=== PATIENT | male | born 1965 | race African-American/Black ===

== ENCOUNTER 2016-12-03 12:33 | Inpatient (IN) | payer OTHER ==
[2016-12-03 14:14] VITALS: BMI 29.7
--- NOTE | 2016-12-03 16:11 | HP ---
CIWA Score - CIWA Score Nausea/Vomitin Muscle Tremors: 3 Anxiety: 1-Mildly Anxious Agitation: 1-Slight > Activity Paroxysmal Sweats: 2 Orientation: 4Disoriented Place/Person Tacttile Disturbances: 0-None Auditory Disturbances: 0-None Visual Disturbances: 0-None Headache: 3-Moderate CIWA-Ar Total Score: 19 Admission ROS BHS - HPI Chief Complaint: "I need to get help." Pt. is here to Detox from Alcohol. Allergies/Adverse Reactions: Allergies Allergy/AdvReac Type Severity Reaction Status Date / Time No Known Allergies Allergy Verified 12/03/16 15:45 History of Present Illness: Pt. is a 51 YO male here to Detox from Alcohol. This is pt.'s first Detox admission at [facility]. Pt. has had a previous Detox admission at [facility] (). Exam Limitations: No Limitations - Ebola screening Have you traveled outside of the country in the last 21 days: No Have you had contact with anyone from an Ebola affected area: No Have you been sick,other than usual withdrawal symptoms: No Do you have a fever: No - Review of Systems Constitutional: Chills, Diaphoresis, Malaise, Night Sweats, Changes in sleep EENT: reports: Blurred Vision, Nose Congestion, Sinus Pressure Respiratory: reports: Cough Cardiac: reports: Palpitations GI: reports: Nausea, Vomiting : reports: No Symptoms Reported Musculoskeletal: reports: No Symptoms Reported Integumentary: reports: No Symptoms Reported Neuro: reports: Headache, Tremors Endocrine: reports: No Symptoms Reported Hematology: reports: No Symptoms Reported Psychiatric: reports: Judgement Intact, Mood/Affect Appropiate, Disorientated ( To Current location.) Other Systems: Reviewed and Negative Patient History - Patient Medical History Hx Anemia: No Hx Asthma: No Hx Chronic Obstructive Pulmonary Disease (COPD): No Hx Cancer: No Hx Cardiac Disorders: No Hx Congestive Heart Failure: No Hx Hypertension: No Hx Hypercholesterolemia: No Hx Pacemaker: No HX Cerebrovascular Accident: No Hx Seizures: No Hx Dementia: No Hx Diabetes: No Hx Gastrointestinal Disorders: No Hx Liver Disease: No Hx Genitourinary Disorders: No Hx Sexually Transmitted Disorders: No Hx Renal Disease (ESRD): No Hx Thyroid Disease: No Hx Human Immunodeficiency Virus (HIV): No (Last Tested: 2015: NEGATIVE.) Hx Hepatitis C: No (Last Tested: 09/2016: NEGATIVE.) Hx Depression: No Hx Suicide Attempt: No (PATIENT DENIES CURRENT SI / HI.) Hx Bipolar Disorder: No Hx Schizophrenia: Yes (Takes Meds.) Other Medical History: DENIES. - Patient Surgical History Past Surgical History: No Hx Neurologic Surgery: No Hx Cataract Extraction: No Hx Cardiac Surgery: No Hx Lung Surgery: No Hx Breast Surgery: No Hx Breast Biopsy: No Hx Abdominal Surgery: No Hx Appendectomy: No Hx Cholecystectomy: No Hx Genitourinary Surgery: No Hx Section: No Hx Orthopedic Surgery: No Anesthesia Reaction: No - PPD History Previous Implant?: Yes Documented Results: Negative w/o proof Implanted On Prior [facility] Admission?: No PPD to be Administered?: Yes - Reproductive History Patient is a Female of Child Bearing Age (11 -55 yrs old): No (PATIENT IS MALE.) - Smoking Cessation Smoking history: Current every day smoker Have you smoked in the past 12 months: Yes Aproximately how many cigarettes per day: 20 Cigars Per Day: 0 Hx Chewing Tobacco Use: No Initiated information on smoking cessation: Yes 'Breaking Loose' booklet given: 12/03/16 (GIVEN ON UNIT.) - Substance & Tx. History Hx Alcohol Use: Yes Hx Substance Use: Yes Substance Use Type: Alcohol, Cocaine Hx Substance Use Treatment: Yes (1 Previous Detox admission at [facility] ( 2017).) - Substances Abused Crack Route: Smoking Frequency: 1-2 times per week Amount used: $40 Age of first use: 39 Date of Last Use: 12/02/16 Alcohol-beer Route: Smoking Frequency: Daily Amount used: 1-6 pk. Age of first use: 39 Date of Last Use: 12/03/16 Family Disease History - Family Disease History Family History: Denies Admission Physical Exam S - Vital Signs Vital Signs: Vital Signs - 24 hr 12/03/16 14:13 Temperature 96.4 F L Pulse Rate 62 Respiratory 20 Rate Blood Pressure 144/90 - Physical General Appearance: Yes: No Apparent Distress, Nourished, Appropriately Dressed , Tremorous HEENTM: Yes: Hearing grossly Normal, Normocephalic, Normal Voice, JOHNNIE, Pharynx Normal Respiratory: Yes: Chest Non-Tender, Lungs Clear, No Respiratory Distress, No Accessory Muscle Use Neck: Yes: No masses,lesions,Nodules, Supple, Trachea in good position Breast: Yes: Breast Exam Deferred Cardiology: Yes: Regular Rhythm, Regular Rate, S1, S2 Abdominal: Yes: Normal Bowel Sounds, Non Tender, Flat, Soft Genitourinary: Yes: Within Normal Limits Back: Yes: Normal Inspection Musculoskeletal: Yes: full range of Motion, Gait Steady Extremities: Yes: Normal Range of Motion, Non-Tender, Tremors Neurological: Yes: Alert, Normal Mood/Affect, Normal Response, Disoriented (To Current Location.) Integumentary: Yes: Normal Color, Dry, Warm Lymphatic: Yes: Within Normal Limits - Diagnostic (1) Alcohol dependence with uncomplicated withdrawal Current Visit: Yes Status: Acute (2) Cocaine dependence, uncomplicated Current Visit: Yes Status: Acute (3) History of schizophrenia Current Visit: Yes Status: Chronic (4) Nicotine dependence Current Visit: Yes Status: Chronic Qualifiers: Nicotine product type: cigarettes Substance use status: uncomplicated Qualified Code(s): F17.210 - Nicotine dependence, cigarettes, uncomplicated Cleared for Admission [facility] - Detox or Rehab [facility] Level of Care: Medically Managed Detox Regimen/Protocol: Librium [facility] Breath Alcohol Content Breath Alcohol Content: 0 Urine Drug Screen - Results Drug Screen Negative: No Urine Drug Screen Results: CIRO-Cocaine
[2016-12-03] MEDS ORDERED: chlordiazePOXIDE HCL 25 MG CAPSULE PO ONE (16:35)
[2016-12-03] MEDS ORDERED: MAGNESIUM CITRATE 300 ML BOTTLE PO PRN (16:35)
[2016-12-03] MEDS ORDERED: guaiFENesin/D-METHORPHAN HB 10 ML UNIT-DOSE CUPS PO PRN (16:35)
[2016-12-03] MEDS ORDERED: IBUPROFEN 400 MG TABLET (FP) PO PRN (16:35)
[2016-12-03] MEDS ORDERED: MENTHOL/PHENOL 1 EACH UD MM PRN (16:35)
[2016-12-03] MEDS ORDERED: LOPERAMIDE HCL 2 MG CAPSULE PO PRN (16:35)
[2016-12-03] MEDS ORDERED: diphenhydrAMINE HCL 50 MG CAPSULE PO PRN ×2 (16:35→18:50)
[2016-12-03] MEDS ORDERED: MAGNESIUM HYDROX 2400MG/30ML ORAL SUSPENSION 30 ML CUP PO PRN (16:35)
[2016-12-03] MEDS ORDERED: ACETAMINOPHEN 325 MG TABLET (FP) PO PRN (16:35)
[2016-12-03] MEDS ORDERED: chlordiazePOXIDE HCL 25 MG CAPSULE PO PRN (16:35)
[2016-12-03] MEDS ORDERED: NICOTINE POLACRILEX 2 MG GUM BC PRN (16:35)
[2016-12-03] MEDS ORDERED: P-EPHED 60MG/TRIPROLIDI 2.5MG TABLET PO PRN (16:35)
[2016-12-03] MEDS ORDERED: MAG HYDROX/AL HYDROX/SIMETH 30 ML UNIT-DOSE CUP PO PRN (16:35)
[2016-12-03] MEDS ORDERED: hydrOXYzine PAMOATE 50 MG CAPSULE (FP) PO PRN ×2 (16:35→18:50)
[2016-12-03] MEDS: NICOTINE 21 MG/24 HOURS TOPICAL PATCH TD SCH (18:33)
[2016-12-03] MEDS: chlordiazePOXIDE HCL 25 MG CAPSULE PO SCH ×2 (18:34→22:37)
[2016-12-03] MEDS: THIAMINE HCL 100 MG TABLET (FP) PO SCH (22:37)
[2016-12-03 23:37] LABS: URINE APPEARANCE CLEAR; URINE BILIRUBIN NEGATIVE (NEGATIVE); URINE BLOOD 1+ (NEGATIVE); URINE COLOR LTYELLOW; URINE GLUCOSE (UA) NEGATIVE (NEGATIVE); URINE KETONE NEGATIVE (NEGATIVE); URINE LEUK ESTERASE NEGATIVE (NEGATIVE); URINE NITRITE NEGATIVE (NEGATIVE); URINE UROBILINOGEN NEGATIVE mg/dL (0.2-1.0)
[2016-12-03 23:46] LABS: URINE PROTEIN 1+ (NEGATIVE)
[2016-12-03 23:56] LABS: URINE MUCUS RARE; URINE RBC 3 /hpf (0-3); URINE WBC 1 /hpf (3-5)
[2016-12-04] MEDS: chlordiazePOXIDE HCL 25 MG CAPSULE PO SCH ×4 (05:26→22:54)
[2016-12-04 10:09] LABS: MCH 28.4 pg (25.7-33.7); MCHC 33.1 g/dl (32.0-35.9); MEAN CELL VOLUME 85.9 fl (80-96); MEAN PLT VOLUME 8.1 fl (7.5-11.1); PLATELET COUNT 245 K/MM3 (134-434); RDW 14.2 % (11.9-15.9); WHITE BLOOD COUNT 6.1 K/mm3 (4.0-10.0)
[2016-12-04 10:23] LABS: SICKLE CELL SCREEN POSITIVE (NEGATIVE)
[2016-12-04 10:37] LABS: ALBUMIN 3.7 g/dl (3.4-5.0); ALK PHOS 73 U/L (45-117); ANION GAP 8 (8-16); BILIRUBIN,TOTAL 0.6 mg/dL (0.2-1.0); CALCIUM 8.8 mg/dL (8.5-10.1); CO2 27 mmol/L (21-32); CREATININE 1.1 mg/dL (0.7-1.3); GLUCOSE,RANDOM 85 mg/dL (74-106); SGOT/AST 19 U/L (15-37); SGPT/ALT 21 U/L (12-78); TOT PROT 7.1 g/dl (6.4-8.2)
[2016-12-04] MEDS: NICOTINE 21 MG/24 HOURS TOPICAL PATCH TD SCH (11:33)
[2016-12-04] MEDS: PRENATAL VITAMINS W/ FOLIC ACID TABLET (FP) PO SCH (11:33)
[2016-12-04] MEDS ORDERED: FLU VACCINE QUAD 60 MCG/0.5 ML (MDV 17-18) IM ONE (12:00)
[2016-12-04 12:17] LABS: HIV 1 & 2 AB NEGATIVE; HIV 1 AGp24 NEGATIVE
--- NOTE | 2016-12-04 13:07 | EKG ---
Test Reason : Blood Pressure : / mmHG Vent. Rate : 057 BPM Atrial Rate : 057 BPM P-R Int : 160 ms QRS Dur : 094 ms QT Int : 414 ms P-R-T Axes : 059 056 047 degrees QTc Int : 402 ms SINUS BRADYCARDIA OTHERWISE NORMAL ECG NO PREVIOUS ECGS AVAILABLE Confirmed by CALE ALBA MD ([id number]) on 12/04/2016 1:06:49 PM Referred By: Felix Miller Confirmed By:CALE ALBA MD
--- NOTE | 2016-12-04 13:59 | CONSULT ---
[facility] Psychiatric Consult - Data Date of interview: 12/04/16 Admission source: [facility] Identifying data: First admission to [facility] for this 51 y/o AA male seeking detox treatment on for alcohol and cocaine dependence.Patient is single without children,domiciled,unemployed and currently supported on Public Assistance (SSI pending). Substance Abuse History: Confirmed by patient in this session. Smoking Cessation. Smoking history: Current every day smoker. Have you smoked in the past 12 months: Yes. Aproximately how many cigarettes per day: 20. Cigars Per Day: 0. Hx Chewing Tobacco Use: No. Initiated information on smoking cessation : Yes. 'Breaking Loose' booklet given: 12/03/16 (GIVEN ON UNIT.). - Substance & Tx. History. Hx Alcohol Use: Yes. Hx Substance Use: Yes. Substance Use Type : Alcohol, Cocaine. Hx Substance Use Treatment: Yes (1 Previous Detox admission at [facility] (2017).). - Substances Abused. Crack. Route: Smoking. Frequency: 1-2 times per week. Amount used: $40. Age of first use: 39. Date of Last Use: 12/02/16. Alcohol-beer. Route: Smoking. Frequency: Daily. Amount used: 1-6 pk. Age of first use: 39. Date of Last Use: 12/03/16 Medical History: Patient endorses good general health. Psychiatric History: Previous history of psychiatric hospitalizations ([facility] and [facility]Diagnosed with Paranoid Schizophrenia.Maintained on haldol and cogentin (doses not recalled).Last taken prior to this [facility] visit (as per self-report).Mr Washington indicates that he gets his psychiatric OPD services at the [facility] mental health clinic.Denies history of suicide attempts. Physical/Sexual Abuse/Trauma History: No reported history of abuse. Additional Comment: Urine Drug Screen Results: CIRO-Cocaine.Noted. Mental Status Exam - Mental Status Exam Alert and Oriented to: Time, Place, Person Cognitive Function: Good Patient Appearance: Well Groomed Mood: Hopeful, Euthymic Affect: Normal Range Patient Behavior: Appropriate, Cooperative Speech Pattern: Clear Voice Loudness: Normal Thought Process: Intact, Goal Oriented Thought Disorder: Not Present Hallucinations: Denies Suicidal Ideation: Denies Homicidal Ideation: Denies Insight/Judgement: Poor Sleep: Poorly, Difficulty falling asleep (wants ambien) Appetite: Good Muscle strength/Tone: Normal Gait/Station: Normal Psychiatric Findings - Problem List ([place] 1, 2,3) (1) Paranoid schizophrenia Current Visit: Yes Status: Chronic (2) Alcohol dependence with uncomplicated withdrawal Current Visit: Yes Status: Acute (3) Cocaine dependence, uncomplicated Current Visit: Yes Status: Acute (4) Nicotine dependence Current Visit: Yes Status: Acute Qualifiers: Nicotine product type: cigarettes Substance use status: uncomplicated Qualified Code(s): F17.210 - Nicotine dependence, cigarettes, uncomplicated - Initial Treatment Plan Initial Treatment Plan: Psychoeducation.Detoxification in progress.Medications : haldol 5 mg po hs + cogentin 1 mg po hs.Side effects/benefits didscussed with patient.Made aware of risk of abnormal involuntary movements,akathisia,dystonias ,dyskinesias,neuroleptic malignant syndrome and anticholinergic manifestations ( dry mouth,blurred vision,urinary hesitancy,constipation).He agrees with this careplan.Observation.
[2016-12-04] MEDS ORDERED: HALOPERIDOL 5 MG TABLET (FP) PO PRN (14:19)
--- NOTE | 2016-12-04 16:45 | PN ---
[facility] CIWA - CIWA Score Nausea/Vomitin-No Nausea/No Vomiting Muscle Tremors: 4-Moderate,w/Arms Extend Anxiety: 3 Agitation: 1-Slight > Activity Paroxysmal Sweats: 3 Orientation: 0-Oriented Tacttile Disturbances: 3-Moderate Itch/Numb/Burn Auditory Disturbances: 0-None Visual Disturbances: 3-Moderate Sensitivity Headache: 0-None Present CIWA-Ar Total Score: 17 S Progress Note (SOAP) Subjective: Tremors, Sweating, Fatigue. Objective: PT. A & O X 3. NO ACUTE DISTRESS. 12/04/16 16:42 Vital Signs Temperature 97.1 F L 12/04/16 15:23 Pulse Rate 71 12/04/16 15:23 Respiratory Rate 18 12/04/16 15:23 Blood Pressure 107/81 12/04/16 15:23 O2 Sat by Pulse Oximetry (%) Laboratory Tests 12/03/16 12/04/16 12/04/16 23:20 08:00 08:00 WBC 6.1 RBC 4.67 Hgb 13.3 Hct 40.1 MCV 85.9 MCH 28.4 MCHC 33.1 RDW 14.2 Plt Count 245 MPV 8.1 Sickle Cell Screen Positive Sodium Potassium Chloride Carbon Dioxide Anion Gap BUN Creatinine Creat Clearance w eGFR Random Glucose Calcium Total Bilirubin AST ALT Alkaline Phosphatase Total Protein Albumin Urine Color Ltyellow Urine Appearance Clear Urine pH 6.0 Ur Specific [place] 1.015 Urine Protein 1+ H Urine Glucose (UA) Negative Urine Ketones Negative Urine Blood 1+ H Urine Nitrite Negative Urine Bilirubin Negative Urine Urobilinogen Negative Urine RBC 3 Urine WBC 1 Urine Mucus Rare RPR Titer HIV 1&2 Antibody Screen Negative HIV P24 Antigen Negative 12/04/16 12/04/16 08:00 08:00 WBC RBC Hgb Hct MCV MCH MCHC RDW Plt Count MPV Sickle Cell Screen Sodium 140 Potassium 3.7 Chloride 105 Carbon Dioxide 27 Anion Gap 8 BUN 9 Creatinine 1.1 Creat Clearance w eGFR > 60 Random Glucose 85 Calcium 8.8 Total Bilirubin 0.6 AST 19 ALT 21 Alkaline Phosphatase 73 Total Protein 7.1 Albumin 3.7 Urine Color Urine Appearance Urine pH Ur Specific [place] Urine Protein Urine Glucose (UA) Urine Ketones Urine Blood Urine Nitrite Urine Bilirubin Urine Urobilinogen Urine RBC Urine WBC Urine Mucus RPR Titer Nonreactive HIV 1&2 Antibody Screen HIV P24 Antigen LABS NOTED. HCV AB RESULT PENDING. 12/04/16 16:44 Assessment: 12/04/16 16:42 WITHDRAWAL SYMPTOMS. Plan: CONTINUE DETOX. REPEAT UA FOR ADMISSION ABNORMALITIES. INCREASE DAILY PO FLUID INTAKE.
[2016-12-04] MEDS: HALOPERIDOL 5 MG TABLET (FP) PO SCH (22:53)
[2016-12-04] MEDS: THIAMINE HCL 100 MG TABLET (FP) PO SCH (22:53)
[2016-12-04] MEDS: BENZTROPINE MESYLATE 1 MG TABLET (FP) PO SCH (22:54)
[2016-12-05] MEDS: chlordiazePOXIDE HCL 25 MG CAPSULE PO SCH ×2 (05:55→10:39)
[2016-12-05 10:13] LABS: URINE APPEARANCE CLEAR; URINE BILIRUBIN NEGATIVE (NEGATIVE); URINE BLOOD 1+ (NEGATIVE); URINE COLOR LTYELLOW; URINE GLUCOSE (UA) NEGATIVE (NEGATIVE); URINE KETONE NEGATIVE (NEGATIVE); URINE LEUK ESTERASE NEGATIVE (NEGATIVE); URINE NITRITE NEGATIVE (NEGATIVE); URINE UROBILINOGEN NEGATIVE mg/dL (0.2-1.0)
[2016-12-05 10:19] LABS: URINE PROTEIN 1+ (NEGATIVE)
[2016-12-05] MEDS: PRENATAL VITAMINS W/ FOLIC ACID TABLET (FP) PO SCH (10:38)
[2016-12-05] MEDS: BENZTROPINE MESYLATE 1 MG TABLET (FP) PO SCH ×2 (10:39→22:32)
[2016-12-05] MEDS: NICOTINE 21 MG/24 HOURS TOPICAL PATCH TD SCH (10:39)
[2016-12-05] MEDS: HALOPERIDOL 5 MG TABLET (FP) PO SCH ×2 (10:39→22:33)
--- NOTE | 2016-12-05 16:43 | PN ---
S CIWA - CIWA Score Nausea/Vomitin Muscle Tremors: 3 Anxiety: 4-Mod. Anxious/Guarded Agitation: 4-Moderately Restless Paroxysmal Sweats: 3 Orientation: 0-Oriented Tacttile Disturbances: 0-None Auditory Disturbances: 0-None Visual Disturbances: 0-None Headache: 1-Very Mild CIWA-Ar Total Score: 18 BHS Progress Note (SOAP) Subjective: Anxious, sweating, tremor, chills, interrupted sleep Objective: 12/05/16 16:37 Last Vital Signs Temp Pulse Resp BP Pulse Ox 97.1 F L 77 18 108/87 12/05/16 14:58 12/05/16 14:58 12/05/16 14:58 12/05/16 14:58 Laboratory Tests 12/03/16 12/04/16 12/04/16 23:20 08:00 08:00 WBC RBC Hgb Hct MCV MCH MCHC RDW Plt Count MPV Sickle Cell Screen Sodium Potassium Chloride Carbon Dioxide Anion Gap BUN Creatinine Creat Clearance w eGFR Random Glucose Calcium Total Bilirubin AST ALT Alkaline Phosphatase Total Protein Albumin Urine Color Ltyellow Urine Appearance Clear Urine pH 6.0 Ur Specific [place] 1.015 Urine Protein 1+ H Urine Glucose (UA) Negative Urine Ketones Negative Urine Blood 1+ H Urine Nitrite Negative Urine Bilirubin Negative Urine Urobilinogen Negative Urine RBC 3 Urine WBC 1 Urine Mucus Rare RPR Titer Hepatitis C Antibody <0.1 HIV 1&2 Antibody Screen Negative HIV P24 Antigen Negative 12/04/16 12/04/16 12/04/16 08:00 08:00 08:00 WBC 6.1 RBC 4.67 Hgb 13.3 Hct 40.1 MCV 85.9 MCH 28.4 MCHC 33.1 RDW 14.2 Plt Count 245 MPV 8.1 Sickle Cell Screen Positive Sodium 140 Potassium 3.7 Chloride 105 Carbon Dioxide 27 Anion Gap 8 BUN 9 Creatinine 1.1 Creat Clearance w eGFR > 60 Random Glucose 85 Calcium 8.8 Total Bilirubin 0.6 AST 19 ALT 21 Alkaline Phosphatase 73 Total Protein 7.1 Albumin 3.7 Urine Color Urine Appearance Urine pH Ur Specific [place] Urine Protein Urine Glucose (UA) Urine Ketones Urine Blood Urine Nitrite Urine Bilirubin Urine Urobilinogen Urine RBC Urine WBC Urine Mucus RPR Titer Nonreactive Hepatitis C Antibody HIV 1&2 Antibody Screen HIV P24 Antigen 12/05/16 08:30 WBC RBC Hgb Hct MCV MCH MCHC RDW Plt Count MPV Sickle Cell Screen Sodium Potassium Chloride Carbon Dioxide Anion Gap BUN Creatinine Creat Clearance w eGFR Random Glucose Calcium Total Bilirubin AST ALT Alkaline Phosphatase Total Protein Albumin Urine Color Ltyellow Urine Appearance Clear Urine pH 6.0 Ur Specific [place] 1.020 Urine Protein 1+ H Urine Glucose (UA) Negative Urine Ketones Negative Urine Blood 1+ H Urine Nitrite Negative Urine Bilirubin Negative Urine Urobilinogen Negative Urine RBC Urine WBC Urine Mucus RPR Titer Hepatitis C Antibody HIV 1&2 Antibody Screen HIV P24 Antigen Labs noted: abnormal UA; sickle cell screen positive Assessment: 12/05/16 16:39 Withdrawal symptoms Noted with abnormal UA and positive sickle cell screen Plan: Continue detox Positive sickle cell screen: already ordered for hgb electrophoresis (follow up on result) Abnormal UA (proteinuria and microscopic hematuria) despite repeat: encouraged to drink lots of water, follow up with your PCP in 1-2 weeks post discharge for further evaluation
[2016-12-05] MEDS: chlordiazePOXIDE 5 MG CAPSULE PO SCH ×2 (17:28→22:33)
[2016-12-05] MEDS: THIAMINE HCL 100 MG TABLET (FP) PO SCH (22:32)
[2016-12-06] MEDS: chlordiazePOXIDE 5 MG CAPSULE PO SCH ×2 (05:46→10:34)
[2016-12-06] MEDS: HALOPERIDOL 5 MG TABLET (FP) PO SCH ×2 (10:34→22:34)
[2016-12-06] MEDS: BENZTROPINE MESYLATE 1 MG TABLET (FP) PO SCH ×2 (10:34→22:34)
[2016-12-06] MEDS: NICOTINE 21 MG/24 HOURS TOPICAL PATCH TD SCH (10:34)
[2016-12-06] MEDS: PRENATAL VITAMINS W/ FOLIC ACID TABLET (FP) PO SCH (10:34)
--- NOTE | 2016-12-06 11:20 | PN ---
BHS Progress Note (SOAP) Subjective: nausa, sweats, interrupted sleep, anxiety, tremors Objective: 12/06/16 11:19 Vital Signs - 24 hr 12/05/16 12/05/16 12/05/16 14:58 17:30 22:10 Temperature 97.1 F L 97.6 F 97 F L Pulse Rate 77 71 76 Respiratory 18 18 19 Rate Blood Pressure 108/87 114/70 123/89 12/06/16 12/06/16 12/06/16 00:30 03:30 06:24 Temperature 97.2 F L Pulse Rate 72 Respiratory 18 18 16 Rate Blood Pressure 113/84 12/06/16 09:06 Temperature 96.9 F L Pulse Rate 78 Respiratory 18 Rate Blood Pressure 117/83 Laboratory Tests 12/03/16 12/04/16 12/04/16 23:20 08:00 08:00 WBC RBC Hgb Hct MCV MCH MCHC RDW Plt Count MPV Sickle Cell Screen Sodium Potassium Chloride Carbon Dioxide Anion Gap BUN Creatinine Creat Clearance w eGFR Random Glucose Calcium Total Bilirubin AST ALT Alkaline Phosphatase Total Protein Albumin Urine Color Ltyellow Urine Appearance Clear Urine pH 6.0 Ur Specific [place] 1.015 Urine Protein 1+ H Urine Glucose (UA) Negative Urine Ketones Negative Urine Blood 1+ H Urine Nitrite Negative Urine Bilirubin Negative Urine Urobilinogen Negative Urine RBC 3 Urine WBC 1 Urine Mucus Rare RPR Titer Hepatitis C Antibody <0.1 HIV 1&2 Antibody Screen Negative HIV P24 Antigen Negative 12/04/16 12/04/16 12/04/16 08:00 08:00 08:00 WBC 6.1 RBC 4.67 Hgb 13.3 Hct 40.1 MCV 85.9 MCH 28.4 MCHC 33.1 RDW 14.2 Plt Count 245 MPV 8.1 Sickle Cell Screen Positive Sodium 140 Potassium 3.7 Chloride 105 Carbon Dioxide 27 Anion Gap 8 BUN 9 Creatinine 1.1 Creat Clearance w eGFR > 60 Random Glucose 85 Calcium 8.8 Total Bilirubin 0.6 AST 19 ALT 21 Alkaline Phosphatase 73 Total Protein 7.1 Albumin 3.7 Urine Color Urine Appearance Urine pH Ur Specific [place] Urine Protein Urine Glucose (UA) Urine Ketones Urine Blood Urine Nitrite Urine Bilirubin Urine Urobilinogen Urine RBC Urine WBC Urine Mucus RPR Titer Nonreactive Hepatitis C Antibody HIV 1&2 Antibody Screen HIV P24 Antigen 12/05/16 08:30 WBC RBC Hgb Hct MCV MCH MCHC RDW Plt Count MPV Sickle Cell Screen Sodium Potassium Chloride Carbon Dioxide Anion Gap BUN Creatinine Creat Clearance w eGFR Random Glucose Calcium Total Bilirubin AST ALT Alkaline Phosphatase Total Protein Albumin Urine Color Ltyellow Urine Appearance Clear Urine pH 6.0 Ur Specific [place] 1.020 Urine Protein 1+ H Urine Glucose (UA) Negative Urine Ketones Negative Urine Blood 1+ H Urine Nitrite Negative Urine Bilirubin Negative Urine Urobilinogen Negative Urine RBC Urine WBC Urine Mucus RPR Titer Hepatitis C Antibody HIV 1&2 Antibody Screen HIV P24 Antigen u/a +ve blood and protein Assessment: 12/06/16 11:20 withdrawal sx, abnormal u/a Plan: cont detox, repeat u/a, fluids, encouarga ambulation
[2016-12-06] MEDS: chlordiazePOXIDE HCL 10 MG CAPSULE PO SCH ×2 (17:54→22:34)
[2016-12-06 22:09] LABS: URINE APPEARANCE CLEAR; URINE BILIRUBIN NEGATIVE (NEGATIVE); URINE BLOOD NEGATIVE (NEGATIVE); URINE COLOR STRAW; URINE GLUCOSE (UA) NEGATIVE (NEGATIVE); URINE KETONE NEGATIVE (NEGATIVE); URINE LEUK ESTERASE NEGATIVE (NEGATIVE); URINE NITRITE NEGATIVE (NEGATIVE); URINE UROBILINOGEN NEGATIVE mg/dL (0.2-1.0)
[2016-12-06 22:10] LABS: URINE PROTEIN 1+ (NEGATIVE)
[2016-12-06 22:11] LABS: URINE MUCUS RARE
[2016-12-06] MEDS: THIAMINE HCL 100 MG TABLET (FP) PO SCH (22:34)
[2016-12-07] MEDS: chlordiazePOXIDE HCL 10 MG CAPSULE PO SCH (05:58)
[2016-12-07 09:25] VITALS: BP 131/90; PULSE 90; TEMP 97.3
--- NOTE | 2016-12-07 16:21 | DS ---
[facility] Detox Discharge Summary Admission Date: 12/03/16 Discharge Date: 12/07/16 - History Present History: Alcohol Dependence, Opioid Dependence Additional Comments: PATIENT STATES THAT HE IS GOING TO '[facility]PAT[facility] ([place]) FOR AFTERCARE. PATIENT WAS DISCHARGED FROM DETOX UNIT IN STABLE MEDICAL CONDITION. Pertinent Past History: Schizophrenia (Paranoid), Nicotine Dependence. - Physical Exam Results Vital Signs: Vital Signs Temperature 97.3 F L 12/07/16 09:24 Pulse Rate 90 12/07/16 09:24 Respiratory Rate 20 12/07/16 09:24 Blood Pressure 131/90 12/07/16 09:24 O2 Sat by Pulse Oximetry (%) Pertinent Admission Physical Exam Findings: WITHDRAWAL SYMPTOMS. Laboratory Tests 12/03/16 12/04/16 12/04/16 23:20 08:00 08:00 WBC RBC Hgb Hct MCV MCH MCHC RDW Plt Count MPV Sickle Cell Screen Sodium Potassium Chloride Carbon Dioxide Anion Gap BUN Creatinine Creat Clearance w eGFR Random Glucose Calcium Total Bilirubin AST ALT Alkaline Phosphatase Total Protein Albumin Urine Color Ltyellow Urine Appearance Clear Urine pH 6.0 Ur Specific [place] 1.015 Urine Protein 1+ H Urine Glucose (UA) Negative Urine Ketones Negative Urine Blood 1+ H Urine Nitrite Negative Urine Bilirubin Negative Urine Urobilinogen Negative Urine RBC 3 Urine WBC 1 Urine Mucus Rare RPR Titer Hepatitis C Antibody <0.1 HIV 1&2 Antibody Screen Negative HIV P24 Antigen Negative 12/04/16 12/04/16 12/04/16 08:00 08:00 08:00 WBC 6.1 RBC 4.67 Hgb 13.3 Hct 40.1 MCV 85.9 MCH 28.4 MCHC 33.1 RDW 14.2 Plt Count 245 MPV 8.1 Sickle Cell Screen Positive Sodium 140 Potassium 3.7 Chloride 105 Carbon Dioxide 27 Anion Gap 8 BUN 9 Creatinine 1.1 Creat Clearance w eGFR > 60 Random Glucose 85 Calcium 8.8 Total Bilirubin 0.6 AST 19 ALT 21 Alkaline Phosphatase 73 Total Protein 7.1 Albumin 3.7 Urine Color Urine Appearance Urine pH Ur Specific [place] Urine Protein Urine Glucose (UA) Urine Ketones Urine Blood Urine Nitrite Urine Bilirubin Urine Urobilinogen Urine RBC Urine WBC Urine Mucus RPR Titer Nonreactive Hepatitis C Antibody HIV 1&2 Antibody Screen HIV P24 Antigen 12/05/16 12/06/16 08:30 18:00 WBC RBC Hgb Hct MCV MCH MCHC RDW Plt Count MPV Sickle Cell Screen Sodium Potassium Chloride Carbon Dioxide Anion Gap BUN Creatinine Creat Clearance w eGFR Random Glucose Calcium Total Bilirubin AST ALT Alkaline Phosphatase Total Protein Albumin Urine Color Ltyellow Straw Urine Appearance Clear Clear Urine pH 6.0 6.0 Ur Specific [place] 1.020 1.015 Urine Protein 1+ H 1+ H Urine Glucose (UA) Negative Negative Urine Ketones Negative Negative Urine Blood 1+ H Negative Urine Nitrite Negative Negative Urine Bilirubin Negative Negative Urine Urobilinogen Negative Negative Urine RBC None Urine WBC None Urine Mucus Rare RPR Titer Hepatitis C Antibody HIV 1&2 Antibody Screen HIV P24 Antigen LABS NOTED. - Treatment Hospital Course: Detox Protocol Followed, Detoxed Safely, Responded well, Discharged Condition Good Patient has Accepted a Rehab Referral to: NO. PT IS GOING TO [facility] ([place], [place]) FOR AFTERCARE. - Medication Discharge Medications: Ambulatory Orders Benztropine Mesylate [Cogentin -] 1 mg PO BID 12/03/16 Haloperidol [Haldol -] 5 mg PO BID 12/03/16 - Diagnosis (1) Alcohol dependence with uncomplicated withdrawal Status: Acute (2) Cocaine dependence, uncomplicated Status: Acute (3) History of schizophrenia Status: Chronic (4) Nicotine dependence Status: Chronic Qualifiers: Nicotine product type: cigarettes Substance use status: uncomplicated Qualified Code(s): F17.210 - Nicotine dependence, cigarettes, uncomplicated; F17.210 - Nicotine dependence, cigarettes, uncomplicated (5) Paranoid schizophrenia Status: Chronic - AMA Did Patient Leave Against Medical Advice: No
[2016-12-16 16:18] LABS: Hgb A2 3.3
== END 2016-12-07 09:13 | disposition home or self-care (01) | DRG 774 ==
LOC: YASAS 12:33 → Y3N 16:37
PROVIDERS: ADMIT Internal Medicine; ATTEND Internal Medicine
PROC: HZ2ZZZZ Detoxification Services for Substance Abuse Treatment (ICD-10-PCS; principal; 2016-12-03)
DX: F10.230 Alcohol dependence with withdrawal, uncomplicated (principal); F14.20 Cocaine dependence, uncomplicated; F17.210 Nicotine dependence, cigarettes, uncomplicated; F20.0 Paranoid schizophrenia
CPT/HCPCS: 36415; 80053; 81003; 81015; 83021; 85027; 85660; 86593; 86803; 87389; 90688; 93005; 93010; G0008